=== PATIENT | female | born 1950 | race Caucasian/White ===

== ENCOUNTER 2016-07-31 18:23 | Emergency (ER) | payer MEDICARE, BC ==
[~2016-07-31] VITALS: Ht 172.7 cm; Wt 100.0 kg
[2016-07-31 18:25] VITALS: BP 194/96; PULSE 69; RESP 16; TEMP 97.9; O2SAT 96
[2016-07-31] MEDS ORDERED: FURO1TAB62 PO (19:09)
[2016-07-31] MEDS ORDERED: POTA-163 PO (19:09)
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
[2016-07-31 21:04] LABS: AUTOMATED NEUTROPHIL # 2.8 TH/MM3 (1.8-7.7); BASOPHIL % 0.4 % (0.0-2.0); EOSINOPHIL # 0.2 TH/MM3 (0-0.4); EOSINOPHIL % 2.8 % (0.0-4.0); HEMO FLAGS AUTO DIFF; LYMPH % 48.1 % (9.0-44.0); LYMPHOCYTE # 3.3 TH/MM3 (1.0-4.8); MEAN CELL VOLUME 92.3 FL (80.0-100.0); MEAN CORPUSCULAR HEMOGLOBIN 31.7 PG (27.0-34.0); MEAN CORPUSCULAR HGB CONC 34.3 % (32.0-36.0); MONO % 6.8 % (0.0-8.0); NEUT % 41.9 % (16.0-70.0); PLATELET COUNT 114 TH/MM3 (150-450); RED BLOOD COUNT 4.55 MIL/MM3 (4.00-5.30); RED CELL DISTRIBUTION WIDTH 13.1 % (11.6-17.2); WHITE BLOOD COUNT 6.8 TH/MM3 (4.0-11.0)
[2016-07-31 21:14] LABS: BICARBONATE 28.1 MEQ/L (21.0-32.0)
[2016-07-31 21:15] LABS: POTASSIUM 3.5 MEQ/L (3.5-5.1)
[2016-07-31 21:49] LABS: PLATELET ESTIMATE SMEAR LOW (NORMAL); PLATELET MORPHOLOGY NORMAL (NORMAL); SCAN/DIFF AUTO DIFF CONFIRMED
[2016-07-31 22:15] LABS: PROTHROMBIN TIME - PATIENT 10.7 SEC (9.8-11.6)
--- NOTE | 2016-07-31 22:36 | RADRPT ---
EXAM DATE/TIME: 07/31/2016 21:40 [facility] COMPARISON: No previous studies available for comparison. INDICATIONS : Bilateral leg swelling. MEDICAL HISTORY : Chronic lower extremity edema. SURGICAL HISTORY : Cholecystectomy. Facial surgery. Right foot surgery. Right leg surgery. ENCOUNTER: Initial ACUITY: 4 - 6 days PAIN SCORE: 0/10 LOCATION: Bilateral legs. TECHNIQUE: Venous ultrasound of the left and right leg was performed from the inguinal ligament to the proximal calf. Real-time, color Doppler and spectral tracing, compression and augmentation techniques were us ed. FINDINGS: RIGHT LEG: There is normal compressibility of the deep venous system from the inguinal region to the proximal ca lf. No echogenic clot is seen in the lumen of the common femoral, femoral, popliteal, and posterior tibial veins. There is a normal response of the venous system to proximal and distal augmentation an d respiration. LEFT LEG: There is normal compressibility of the deep venous system from the inguinal region to the proximal ca lf. No echogenic clot is seen in the lumen of the common femoral, femoral, popliteal, and posterior tibial veins. There is a normal response of the venous system to proximal and distal augmentation an d respiration. CONCLUSION: No DVT seen of either lower extremity. Antwon Pagan MD on July 31, 2016 at 22:34 Board Certified Radiologist. This report was verified electronically.
[2016-07-31 23:28] VITALS: BP 170/89
== END 2016-07-31 23:29 | disposition home or self-care (01) ==
LOC: NEPB 18:23
DX: R60.0 Localized edema (principal); Z87.891 Personal history of nicotine dependence
CPT/HCPCS: 80048; 85025; 85610; 85730; 93970